=== PATIENT | male | born 1990 | race Asian ===

== ENCOUNTER 2018-07-24 01:40 | Emergency (ER) | payer MEDICAID ==
[~2018-07-24] VITALS: Ht 180.3 cm; Wt 79.4 kg
[2018-07-24 01:48] VITALS: Ht 180.3 cm; Wt 79.4 kg
[2018-07-24 03:03] VITALS: BP 120/60
== END 2018-07-24 03:03 | disposition home or self-care (01) ==
LOC: ED 01:40
DX: R07.89 Other chest pain (principal); R06.02 Shortness of breath